=== PATIENT | female | born 1960 | race Caucasian/White ===

== ENCOUNTER 2022-04-26 00:25 | Emergency (ER) | payer BC ==
[~2022-04-26] VITALS: Ht 162.6 cm; Wt 101.6 kg
--- NOTE | 2022-04-26 01:11 | NUR ---
BIBRA 89 FOR C/O H/A & LUE PAIN S/P SLEEP WALKING. +HITTING THE HEAD. PT ARRIVED WITH PREVIOUS LUE FX WITH SLING IN PLACE. PT AWAKE AND ALERT X4 AMBULATORY WITH STEADY GAIT. NO GROSS TRAUMA NOTED. V/S WNL.
[2022-04-26] MEDS ORDERED: HYDROCODONE/APAP 5/325MG TABLET ONE (01:17)
--- NOTE | 2022-04-26 01:28 | NUR ---
[employer] [employer] SERVICER AT BEDSIDE
[2022-04-26] MEDS ORDERED: HYDROCODONE/APAP 5/325MG TABLET PO ONE (01:30)
[2022-04-26] MEDS ORDERED: IBUP-1955 PO (02:31)
--- NOTE | 2022-04-26 06:03 | NUR ---
Patient discharged to home in stable condition. Written and verbal after care instructions given. Patient verbalizes understanding of instruction.Picked up by facility dental detail representative. Ambulated out of ER with steady gait.
[2022-04-26 06:33] VITALS: BP 117/61
== END 2022-04-26 06:33 | disposition home or self-care (01) ==
LOC: ER 00:26
DX: S09.90XA Unspecified injury of head, initial encounter (principal); M25.512 Pain in left shoulder; M25.552 Pain in left hip; M25.551 Pain in right hip; F32.A Depression, unspecified; Z79.1 Long term (current) use of non-steroidal anti-inflammatories (NSAID); W18.30XA Fall on same level, unspecified, initial encounter; Y93.89 Activity, other specified; Y92.89 Other specified places as the place of occurrence of the external cause; Y99.8 Other external cause status
CPT/HCPCS: 70450-TC; 72125-TC; 72170-TC; 73030-TC; 73060-TC